=== PATIENT | male | born 1975 | race Caucasian/White ===

== ENCOUNTER 2018-05-20 11:40 | Day surgery (SDC) | payer OTHER ==
[~2018-05-20 11:40] MED LIST: CEFAZOLIN 2 GM-D5W BAG** 2 GM/50 ML ML IV ONE; CEFAZOLIN 2 GM-D5W BAG** 2 GM/50 ML ML IV SCH; KEFZOL 1 GM ONE; Lactated Ringers 1,000 ML IV ONE; Lactated Ringers 1,000 ML IV SCH; Sensorcaine 0.25% 10 ML ONE
[2018-05-20] MEDS ORDERED: Zemuron 100 MG/10 ML IV ONE (11:41)
[2018-05-20] MEDS ORDERED: Zofran 4 MG/2 ML VIAL IV ONE (11:41)
[2018-05-20] MEDS ORDERED: SUBLIMAZE 100 MCG/2 ML IV ONE (11:41)
[2018-05-20] MEDS ORDERED: Decadron 4 MG INJ IV ONE (11:41)
[2018-05-20] MEDS ORDERED: TORAdol 30 mg Injection IV ONE (11:41)
[2018-05-20] MEDS ORDERED: DIPRIVAN 200 MG/20 ML IV ONE (11:41)
--- NOTE | 2018-05-20 14:41 | OP ---
SURGERY DATE/TIME: 05/20/2018 1350 PREOPERATIVE DIAGNOSIS: Symptomatic ventral hernia. POSTOPERATIVE DIAGNOSIS: Symptomatic ventral hernia. PROCEDURE: Ventral herniorrhaphy with mesh. SURGEON: Reid Boateng M.D. ANESTHESIA: General. COMPLICATIONS: None. CONDITION: Stable. INDICATION: A patient with symptomatic ventral hernia. DESCRIPTION OF PROCEDURE: Taken to surgery. General anesthetic. Routine prep and drape. Time out performed. The marked area was anesthetized with 0.25% Marcaine. It was opened. Preperitoneal fat was pushed out this was taken off. The defect was 2 x 1.5 cm. Bicomponent mesh was placed after a rim had been defined and a shelf underneath there. The mesh was going to be totally preperitoneal. Mesh placed in and propped up, secured with four quadrant sutures. There was a little bit of diastasis in the upper abdomen above this. The repair looked solid. Subcu closed with 3-0 Vicryl. Skin closed 4-0 Vicryl. Steri-Strips applied. Sterile dressing applied. The patient tolerated the procedure satisfactorily.
[2018-05-20] MEDS ORDERED: Zofran 4 MG/2 ML VIAL ONE (14:44)
[2018-05-20] MEDS ORDERED: SUBLIMAZE 100 MCG/2 ML ONE (14:44)
[2018-05-20 15:26] VITALS: O2SAT 97
[2018-05-20 15:49] VITALS: BP 117/63; PULSE 70
== END 2018-05-20 15:52 | disposition home or self-care (01) ==
LOC: SDC 11:40
PROVIDERS: ATTEND Surgery
DX: K43.9 Ventral hernia without obstruction or gangrene (principal); I10 Essential (primary) hypertension; E66.9 Obesity, unspecified; Z72.0 Tobacco use
CPT/HCPCS: 49560; 49568; C1781; 88302; J0690; J1100; J1885; J2405; J2704; J3010; L0625

== ENCOUNTER 2023-05-28 12:07 | Emergency (ER) | payer OTHER ==
[2023-05-28] MEDS ORDERED: WATER IV ONE (12:08)
[2023-05-28] MEDS ORDERED: CORDARONE IV ONE (12:08)
[2023-05-28] MEDS ORDERED: Sodium Chloride 0.9% 1000 ML 1,000 ML IV ONE (12:08)
[2023-05-28] MEDS ORDERED: Magnesium Sulfate 1 GM/2 ML VIAL IV ONE (12:08)
[2023-05-28] MEDS ORDERED: SODIUM BICARBONATE 50 MEQ/50 ML ABBOJECT IV ONE (12:08)
[2023-05-28] MEDS ORDERED: EPINEPHRINE ABBOJECT 1 MG/10 ML IV ONE (12:08)
[2023-05-28] MEDS ORDERED: DEXTROSE IV ONE (12:08)
[2023-05-28 12:37] VITALS: PULSE 90; RESP 43
--- NOTE | 2023-05-28 13:56 | ERPHSYRPT ---
- History of Present Illness Time Seen by Provider: 05/28/23 12:07 Source: EMS, police Exam Limitations: clinical condition Patient Subjective Stated Complaint: Cardiac Arrest Triage Nursing Assessment: Patient arrived by ambulance to ER at 1204. Patient being bagged by EMS upon arrival with active CPR in progress. Reported to staff that cardiac arrest was witnessed but unclear to exact time that arrest was observed and CPR initiated. Physician History: 48 years old incarcerated male is brought in the ER with CPR in progress. Apparently EMS called out for chest pain, patient was having agonal breathing on their arrival at the scene, patient went into V-fib, was shocked 3 times but lost pulses almost 25 minutes prior to arrival in the ER with unresponsiveness. He has Igel in place and CPR in progress. He got 1 round of epi prior to arrival. Patient initial rhythm on ER arrival is PEA with 5 mm fixed dilated pupils. Patient is promptly intubated and CPR is continued. Left femoral central line is placed with multiple rounds of epi, bicarb along with magnesium and amiodarone with no ROSC. Ultrasound showed standstill heart. Almost 50 minutes with no pulse, I do not think further resuscitative efforts would be any productive and patient is pronounced at 1232. Aspirin Treatment Today: unknown Allergies/Adverse Reactions: No Known Drug Allergies Allergy (Unverified 05/20/18 12:03) Home Medications: Citalopram Hydrobromide 20 mg* [ceLEXa 20 MG] 20 mg PO DAILY 05/07/18 [History] Hydrochlorothiazide 25 mg [hydroDIURIL 25 MG] 12.5 mg PO DAILY 05/07/18 [History] Ibuprofen [Ibu] 600 mg PO QHS 05/07/18 [History] OLANZapine [Zyprexa] 10 mg PO QHS 05/07/18 [History] lisinopriL [Zestril] 40 mg PO QHS 05/07/18 [History] Travel Risk - International Travel Have you traveled outside of the country in past 3 weeks: No - Vaccine Status Have you recieved a Covid-19 vaccination: No - Review of Systems All Other Systems: Unable due to condition - Past Medical History Pertinent Past Medical History: Yes Neurological History: No Pertinent History ENT History: No Pertinent History Cardiac History: Deep Vein Thrombosis, Hypertension Respiratory History: No Pertinent History Endocrine Medical History: No Pertinent History Musculoskeletal History: No Pertinent History GI Medical History: No Pertinent History History: No Pertinent History Psycho-Social History: Depression Male Reproductive Disorders: No Pertinent History Other Medical History: Patient unresponsive upon arrival to ER; unable to obtain a medical history from this patient at this time. Patient coming to ER from a correctional facility. All medical history pulled from previous ER chart. 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 , right knee pins placed. Patient unresponsive upon arrival to ER; unable to obtain a medical history from this patient at this time. Patient coming to ER from a correctional facility. All medical history pulled from previous ER chart. - Social History Smoking Status: Unknown if ever smoked Exposure to second hand smoke: No Drug Use: none - Nursing Vital Signs Nursing Vital Signs: Initial Vital Signs Pulse Rate 94 H 05/28/23 12:13 Respiratory Rate 35 H 05/28/23 12:13 O2 Sat by Pulse Oximetry 94 L 05/28/23 12:13 - Physical Exam General Appearance: other (Noted spontaneous respiratory effort) Eye Exam: other (Fixed dilated 5 mm bilateral pupils) Ears, Nose, Throat Exam: TMs normal, other (Pharyngeal secretions) Neck Exam: normal inspection, supple Respiratory Exam: other (No spontaneous breathing effort CPR in progress on bag ventilation) Cardiovascular Exam: other (No palpable pulses, cyanosis upper body) Gastrointestinal/Abdomen Exam: soft, No distention Extremity Exam: normal inspection Neurologic Exam: other (Abnormal tone), No alert, 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 Skin Exam: cyanosis SpO2: 72 O2 Delivery: Ambu-Bag Procedures - Central Line Time Of Procedure: 12:15 Timeout: Performed Central Line Lumen: triple Lumen Size: 7 [place] Central Line Procedure: chlorahexadine prep Central Line Postion: femoral (R) Ultrasound Guided Placement: No Complications: none Central Line Post Position: good blood return - Intubation Time of Intubation: 12:08 Intubation Indications: cardiac arrest, respiratory arrest, airway protection Intubation Method: glidescope Tube Size (cm): 8.0 Endotracheal Tube Confirmation: bilateral breath sounds, positive end tidal CO2, good rise & fall of chest Intubation Complications: no complications Performed By: ED Physician Ordered Tests: Active Orders 24 hr Category Date Time Status Intubate Patient STAT RT 05/28/23 13:11 Completed Standby ROUTINE RT 05/28/23 13:17 Completed Ventilator Management STAT RT 05/28/23 13:18 Completed Medication Summary Discontinued Medications Generic Name Dose Route Start Last Admin Trade Name Pamela PRN Reason Stop Dose Admin Epinephrine HCl 1 mg 05/28/23 12:08 Epinephrine 1 Mg/10 Ml Abbj 0.1 Mg/Ml Syr IV 05/28/23 12:09 .STK-MED ONE Amiodarone HCl 300 mg/ 26 mls @ ud 05/28/23 12:08 Dextrose IV 05/28/23 12:09 .STK-MED ONE Magnesium Sulfate 2 gm 05/28/23 12:08 Magnesium Sulfate Injection IV 05/28/23 12:09 .STK-MED ONE Sodium Bicarbonate 50 meq 05/28/23 12:08 Sodium Bicarbonate 1 Meq/Ml 50ml Syringe IV 05/28/23 12:09 .STK-MED ONE - Progress Progress: unchanged Progress Note: 05/28/23 14:03 48 years old incarcerated male is brought in the ER with CPR in progress. Apparently EMS called out for chest pain, patient was having agonal breathing on their arrival at the scene, patient went into V-fib, was shocked 3 times but lost pulses almost 25 minutes prior to arrival in the ER with unresponsiveness. He has Igel in place and CPR in progress. He got 1 round of epi prior to arrival. Patient initial rhythm on ER arrival is PEA with 5 mm fixed dilated pupils. Patient is promptly intubated and CPR is continued. Left femoral central line is placed with multiple rounds of epi, bicarb along with magnesium and amiodarone with no ROSC. Ultrasound showed standstill heart. Almost 50 minutes with no pulse, I do not think further resuscitative efforts would be any productive and patient is pronounced at 1232. No family member available - Departure Departure Disposition: Clinical Impression: Cardiopulmonary arrest Condition: Critical Care Time: Yes Critical Care Time(excluding separately billable procedures): Critical 30-74 mins Referrals: DOCTOR,NO FAMILY [Primary Care Provider] - Follow up/PCP as directed
[2023-05-28 14:04] VITALS: O2SAT 72
== END 2023-05-28 12:32 | disposition expired ==
LOC: ED 12:07
DX: I46.9 Cardiac arrest, cause unspecified (principal)
CPT/HCPCS: 31500; 92950; 94799; 99281; 99291; J0171; J0282; J3475